=== PATIENT | female | born 1995 | race African-American/Black ===

== ENCOUNTER 2019-03-10 20:13 | Emergency (ER) | payer OTHER ==
[2019-03-10 20:20] VITALS: BP 127/81
[2019-03-10] MEDS ORDERED: CYCLOBENZAPRINE 10 MG TABLET PO STA (21:37)
[2019-03-10] MEDS ORDERED: CYCLOBENZAPRINE 10 MG Prepack 2 PO PRN (21:38)
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
== END 2019-03-10 21:40 | disposition home or self-care (01) ==
LOC: ED 20:13
DX: S13.4XXA Sprain of ligaments of cervical spine, initial encounter (principal); M54.5 Low back pain; V43.52XA Car driver injured in collision with other type car in traffic accident, initial encounter; Y92.410 Unspecified street and highway as the place of occurrence of the external cause
CPT/HCPCS: 99282; 99284; A9270